=== PATIENT | female | born 1985 | race Caucasian/White ===

== ENCOUNTER 2016-05-01 10:39 | Emergency (ER) | payer OTHER ==
[2016-05-01 10:58] VITALS: BP 115/76
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
== END 2016-05-01 11:30 | disposition home or self-care (01) ==
LOC: UCCORT 10:39
DX: S16.1XXA Strain of muscle, fascia and tendon at neck level, initial encounter (principal); X50.0XXA Overexertion from strenuous movement or load, initial encounter; Z88.8 Allergy status to other drugs, medicaments and biological substances; Z87.891 Personal history of nicotine dependence
CPT/HCPCS: 99212; G0463